=== PATIENT | female | born 1955 | race Caucasian/White ===

== ENCOUNTER 2018-10-11 05:48 | Inpatient (IN) | payer OTHER ==
[2018-10-11] VITALS (18 sets, daily range): BP systolic 96–151; BP diastolic 44–88
[~2018-10-11] VITALS: Ht 167.6 cm; Wt 99.8 kg
[2018-10-11] MEDS ORDERED: VITAMIN D250000 UNI1 ORAL (06:43)
[2018-10-11] MEDS ORDERED: HYDROCHLOROTHIA25 MG ORAL (06:43)
[2018-10-11] MEDS ORDERED: LISINOPRIL30 MG ORAL (06:43)
[2018-10-11] MEDS ORDERED: LEVOTHYROXINE125 MCG ORAL (06:43)
[2018-10-11] MEDS ORDERED: Lidocaine 1% MPF 10mg/ml 5ml ONE (06:46)
[2018-10-11] MEDS ORDERED: Midazolam 2mg/2ml Inj ONE (06:46)
[2018-10-11] MEDS ORDERED: fentaNYL 100 mcg/2 mL IV ONE (06:46)
[2018-10-11] MEDS ORDERED: ceFAZolin sod 2 GM in NS 55 ML IVPB ONE (07:00)
[2018-10-11] MEDS ORDERED: Succinylcholine 20mg/ml 10ml vial ONE (07:01)
[2018-10-11] MEDS ORDERED: Zemuron 50mg/5ml Inj IV ONE (07:01)
[2018-10-11] MEDS ORDERED: Vancomycin 1gm vial IVPB ONE (07:11)
[2018-10-11] MEDS ORDERED: Gelfoam Size TOPIC ONE (07:11)
[2018-10-11] MEDS ORDERED: Thrombin 5000 units TOPIC ONE (07:11)
[2018-10-11] MEDS ORDERED: Bacitracin 50000 Units Vial ONE (07:11)
--- NOTE | 2018-10-11 07:22 | Pre-Procedure Note/Attestation ---
Pre-Procedure Note/Attestation Complete Prior to Procedure Planned Procedure: not applicable Procedure Narrative: Anterior cervical discectomy and fusion C45 and artificial disc replacement C56 Indications for Procedure Pre-Operative Diagnosis: Herniation of C45,56 Attestation I attest that I discussed the nature of the procedure; its benefits; risks and complications; and alternatives (and the risks and benefits of such alternatives ), prior to the procedure, with the patient (or the patient's legal agency sales representative). I attest that, if there was a reasonable possibility of needing a blood transfusion, the patient (or the patient's legal agency sales representative) was given the [facility] standardized written summary, pursuant to the Greg Stuttgart Blood Safety Act ([place] Health and Safety Code # 1645, as amended). I attest that I re-evaluated the patient just prior to the surgery and that there has been no change in the patient's H&P, except as documented below: Neil Forde MD Oct 11, 2018 07:22
--- NOTE | 2018-10-11 07:24 | Brief Operative Note ---
Immediate Post Operative Note Operative Note Chief Complaint: neck pain and radiculpathy Pre-op Diagnosis: Herniation of C45,56 Procedure: Anterior cervical discectomy and fusion C45 and artificial disc replacement C56 Post-op Diagnosis: same as pre-op Findings: consistent w/pre-op dx studies Surgeon: Maurisio Supplier Development Manager: Mainor Anesthesiologist: EVER Anesthesia: general Specimen: none Complications: none Condition: stable Fluids: IVF Estimated Blood Loss: minimal Drains: none Implant(s) used?: Yes - nuvasive interlock sz 6, osteocell 1cc, prodisc c sz 5 Neil Forde MD Oct 11, 2018 07:24
[2018-10-11] MEDS ORDERED: Metoclopramide 10mg/2ml Inj IVP PRN ×2 (07:30→08:30)
[2018-10-11] MEDS ORDERED: Morphine Sulfate 10mg/ml Inj ONE (08:12)
[2018-10-11] MEDS ORDERED: Glycopyrrolate 0.2mg/ml 1ml Vial ONE (08:12)
[2018-10-11] MEDS ORDERED: Sodium Chloride 10ml vial INJ ONE (08:12)
[2018-10-11] MEDS ORDERED: Ketorolac 30mg Inj ONE (08:12)
[2018-10-11] MEDS ORDERED: Neostigmine 1mg/ml 10ml Inj ONE (08:12)
--- NOTE | 2018-10-11 08:26 | Anethesia Preoperative Eval ---
Anesthesia Pre-op PMH/ROS General Date of Evaluation: Oct 11, 2018 Time of Evaluation: 07:05 Anesthesiologist: Keyon ASA Score: ASA 2 Mallampati Score Class I : Soft palate, uvula, fauces, pillars visible Class II: Soft palate, uvula, fauces visible Class III: Soft palate, base of uvula visible Class IV: Only hard plate visible Mallampati Classification: Class II Surgeon: Maurisio Diagnosis: Cervical radiculopathy Surgical Procedure: ACDF C4 to C6 Anesthesia History: PONV Family History: no anesthesia problems Allergies: Coded Allergies: PENICILLINS (Verified Allergy, Intermediate, 10/11/18) rash PINEAPPLE (Verified Allergy, Intermediate, 10/11/18) sores in the mouth Medications: see eMAR Patient NPO?: Yes NPO Date: Oct 10, 2018 NPO Time: 1900 Past Medical History Cardiovascular: Reports: HTN - stable; Denies: CAD, [place], valve dz, arrhythmia, other Pulmonary: Denies: asthma, COPD, JOHNATHON, other Gastrointestinal/Genitourinary: Reports: GERD; Denies: CRI, ESRD, other Neurologic/Psychiatric: Reports: depression/anxiety; Denies: dementia, CVA, TIA, other Endocrine: Reports: hypothyroidism; Denies: DM, steroids, other HEENT: Denies: cataract (L), cataract (R), glaucoma, [place] (L), [place] (R), other Hematology/Immune: Denies: anemia, DVT, bleeding disorder, other Musculoskeletal/Integumentary: Denies: OA, RA, DJD, DDD, edema, other Other: other - overweight PMH Narrative: as above PSxH Narrative: Cholecystectomy, D&C, cosmetic Sx Anesthesia Pre-op Phys. Exam Physician Exam Last Vital Signs Date Time Temp Pulse Resp B/P (MAP) Pulse Ox O2 Delivery O2 Flow Rate FiO2 10/11/18 06:50 Room Air 10/11/18 06:24 97.0 69 18 151/75 (100) 99 Constitutional: NAD Neurologic: CN 2-12 intact Cardiovascular: RRR, no M/R/G Respiratory: CTA Gastrointestinal: S/NT/ND Airway Exam Mallampati Score: Class II MO: limited Neck: stiff ROM: limited Teeth: missing Dentures: no upper, no lower Anesthesia Pre-op A/P Labs see chart Studies Pre-op Studies: EKG - NSR, echo - EF 55% Risk Assessment & Plan Assessment: ASA 2 Plan: GAC with ETT PONV prevention, neuromonitoring Status Change Before Surgery: No Pre-Antibiotics Drug: Ancef 2gr. Given Within 1 Hr of Incision: Yes Time Given: 07:48 Jsoe M Ta MD Oct 11, 2018 08:26
[2018-10-11] MEDS ORDERED: LR 1000ml 1,000 ML IVLG SCH (08:27)
[2018-10-11] MEDS ORDERED: Ketorolac 30mg Inj IV PRN (08:30)
[2018-10-11] MEDS ORDERED: Acetaminophen (Non formulary) 100 ML IV ONE (08:30)
[2018-10-11] MEDS ORDERED: DiphenhydrAMINE 50mg/ml Inj IVP PRN (08:30)
[2018-10-11] MEDS ORDERED: Hydromorphone 0.5mg/0.5ml inj IVP PRN (08:30)
[2018-10-11] MEDS ORDERED: Propofol 1,000mg/ 100ml btl IV ONE (10:03)
[2018-10-11] MEDS ORDERED: LR 1000ml ONE (10:03)
[2018-10-11] MEDS ORDERED: Sterile Water Irrig 1000ml IRRIG ONE (10:03)
[2018-10-11] MEDS ORDERED: NS Irrig 1000ml ONE (10:03)
[2018-10-11] MEDS ORDERED: Neosporin Oint Ud Pkt TOPIC ONE (10:05)
--- NOTE | 2018-10-11 10:07 | Immediate Post-Op Evaluation ---
Immediate Post-Op Evalulation Immediate Post-Op Evalulation Procedure: ACDF C4-C5 C5-C6 Date of Evaluation: Oct 11, 2018 Time of Evaluation: 10:06 IV Fluids: 700 Blood Products: none Estimated Blood Loss: 50 Urinary Output: 600 Blood Pressure Systolic: 119 Blood Pressure Diastolic: 72 Pulse Rate: 68 Respiratory Rate: 20 O2 Sat by Pulse Oximetry: 99 Temperature (Fahrenheit): 97.6 Pain Score (1-10): 1 Nausea: No Vomiting: No Complications none Patient Status: reacts, patent, none Hydration Status: adequate Jose M Ta MD Oct 11, 2018 10:07
[2018-10-11] MEDS ORDERED: DiphenhydrAMINE 50mg/ml Inj ONE (10:21)
[2018-10-11] MEDS: NS w/KCl 20mEq 1000ml 1,000 ML IV SCH ×2 (11:57→23:07)
[2018-10-11] MEDS: Dexamethasone 4mg/ml vial IVP SCH ×2 (11:58→17:36)
[2018-10-11] MEDS ORDERED: Morphine Sulfate 4mg/ml Inj (IV USE ONLY) IV PRN ×2 (12:00)
[2018-10-11] MEDS ORDERED: HYDROcodone/Acetamin 7.5/325 tab ORAL PRN ×2 (12:00)
[2018-10-11] MEDS ORDERED: Milk of Magnesia 30ml Ud ORAL PRN (12:00)
[2018-10-11] MEDS ORDERED: Morphine Sulfate 2mg/ml Inj(IV/IM USE ONLY) IV PRN (12:00)
[2018-10-11] MEDS ORDERED: HYDROmorphone 1mg/ml Carpuject IVP PRN (12:00)
[2018-10-11] MEDS ORDERED: Naloxone 0.4mg/ml Inj IVP PRN (12:00)
[2018-10-11] MEDS ORDERED: Chloraseptic Spray 20mL Bottle ORAL PRN (13:00)
--- NOTE | 2018-10-11 14:37 | Diagnostic Imaging Report ---
Indication: Neck Pain Findings: 5 fluoroscopic views of the cervical spine were obtained. C5-6 anterior fusion and discectomy noted. There is also fusion of the C4-5 level. IMPRESSION: Intraoperative imaging
[2018-10-11] MEDS: ceFAZolin sod 1 GM in D5W 55 ML IV SCH ×2 (15:18→23:07)
[2018-10-11] MEDS: Docusate 100mg cap ORAL SCH (17:36)
[2018-10-11] MEDS: HYDROcodone/Acetamin 5/325 tab ORAL PRN (17:42)
[2018-10-12] VITALS: BP 115/59
[2018-10-12] MEDS: Dexamethasone 4mg/ml vial IVP SCH ×2 (00:18→06:04)
[2018-10-12] MEDS: HYDROcodone/Acetamin 5/325 tab ORAL PRN ×2 (00:18→12:10)
--- NOTE | 2018-10-12 01:45 | Operative Note - Dictated ---
DATE OF OPERATION: 10/11/2018 SURGEON: Neil Forde MD, Orthopedic Spine Surgeon. LEAD RADIATION THERAPIST: Rachid Hayward M.D. PREOPERATIVE DIAGNOSES: 1. Intractable neck pain. 2. Radiculopathy. 3. Herniation, C4-C5 and C5-C6. 4. Neural foraminal stenosis C4-C5 and C5-C6. 5. Stenosis. POSTOPERATIVE DIAGNOSES: 1. Intractable neck pain. 2. Radiculopathy. 3. Herniation, C4-C5 and C5-C6. 4. Neural foraminal stenosis C4-C5 and C5-C6. 5. Stenosis. PROCEDURE PERFORMED: 1. Anterior cervical discectomy and artificial disc replacement of C5-C6 using a Synthes Prodisc C 5 height. 2. Anterior cervical discectomy and fusion of C4-C5 using Nuvasive Interlock C size 6 PEEK cage and three 13 mm screws 1 mL Osteocell allograft bone and local autograft. 3. Use of intraoperative microscope. 4. Motor evoked potential monitoring. 5. Somatosensory evoked potential monitoring. 6. Supervision and interpretation of fluoroscopy. COMPLICATIONS: None. ANESTHESIA: General. ESTIMATED BLOOD LOSS: Less than 100 mL. INDICATIONS FOR SURGERY: This patient is a 63-year-old female who has a history of diagnoses as listed above. As of result of this, the patient sustained intractable neck pain, radiculopathy, herniation, C4-C5 and C5-C6, neural foraminal stenosis, C5-C6, stenosis. We tried a course of conservative management but despite this course there was still a significant component of persistent, recalcitrant neck pain and arm pain. The MRI demonstrated significant neural foraminal compromise secondary to disc herniations at C4-C5 and C5-C6. We had a long discussion with Prudence regarding the risks and benefits of surgery. Our discussion included but was not limited to nonoperative management, chiropractic management, another epidural steroid injection as well definitive management in the form of surgery. We recommended an artificial disc replacement of C5-C6 and anterior cervical discectomy and fusion of C4-C5 as final definitive management. We reviewed the risks and benefits of surgery with the patient. Our discussion included a comprehensive review of the clinical issues and the nature of the clinical decision. We reviewed the alternatives, including doing nothing. The patient elected to proceed accordingly with an artificial disc replacement of C5-C6 and anterior cervical discectomy and fusion of C4-C5. We had a long discussion regarding the risks, alternatives and benefits of surgery. Our description of the risks included a discussion in person as well as a signed consent which detailed all pertinent risks from the procedure itself. Briefly, our discussion included but was not limited to infection, bleeding, pseudarthrosis, spinal cord injury, neurovascular injury, dural tear, CSF leak, neuropathy, paralysis, permanent weakness/drop foot/drop arm, paresthesias, blindness, palsy and weakness. The patient understood there may be a need for a revision surgery or additional procedures. Approach-related complications including dysphonia, dysphagia, blindness, permanent vocal cord and neural injury, hematoma, swallowing and breathing difficulty. Medical complications were reviewed including liver, kidney, shock, cardiopulmonary failure, anesthesia complications including , swelling, damage to the musculature, larynx/voice injury or loss, esophagus/throat, trachea, blood vessels and muscles/muscular sprain and lungs/pneumothorax during this surgical procedure; injury to deeper structures may be temporary or permanent. After this review of risks, the patient understood these and elected to proceed. A written and verbal consent was given. We discussed the pros and cons of all the alternatives. We discussed the uncertainties associated with the decision. Afterwards I assessed the patient's understanding and explored their preferences. All questions were answered and no guarantees were given. Medical clearance was obtained prior to surgery. INTRAOPERATIVE FINDINGS: A discrete disc herniation which was found posterior to an obvious tear in the posterior longitudinal ligament at C5-C6. This was causing a considerable amount of neural foraminal stenosis with significant encroachment on the neural foramina and spinal cord which was being impinged as a result of this pressure. Upon inspection of the interspace at C4-C5. I noticed a rent in the posterior longitudinal ligament or PLL. Upon inspection of this tear once it was mobilized with Kerrison rongeurs there was a disc fragment and herniation causing encroachment on the neural foramina and spinal cord posterior to the PLL. This was resected as well which caused some noted relief on the underlying neural elements. DESCRIPTION OF PROCEDURE: Under the benefit of general endotracheal anesthesia and with the assistance of the entire operative team, the patient was moved from the [facility] onto the operative table in the supine position. The head was secured and carefully positioned appropriately. Bilateral arms were secured with GelPads and foam and all bony prominences were padded. For the bilateral lower extremities SCD and ISIDRO hose were placed for DVT prophylaxis. A surgical timeout was called which corroborated our planned procedure of artificial disc replacement of an artificial disc replacement of C5-C6 and anterior cervical discectomy and fusion of C4-C5. Preoperative antibiotics were administered within 30 minutes of the incision for antibiotic prophylaxis. Using lateral fluoroscopic radiography, the operative levels were delineated. Next the wound was prepped and draped with Chlorhexidine and sterile drapes. An incision was based on lateral fluoroscopy and we centered our incision at the C4-C5 and C5-C6 interspace and next using a standard Shine-Malcolm anterior based approach the incision was taken down through the skin and subcutaneous tissues until the vertebral bodies and their corresponding disc spaces were visualized. A needle was placed into the interspace to confirm placement of the operative interspace and we performed the remainder of procedure under microscopic visualization. Next, using a bipolar and Bovie cautery to ensure meticulous hemostasis, the longus colli was mobilized bilaterally and retractors were placed deep to the longus colli bilaterally to address retraction. Next we turned our attention to the radical anterior discectomy. This was initially performed at C5-C6. First by using a 15 blade scalpel followed by narrow pituitaries and a Microsect 5-B curette was used to denude the endplate of all cartilaginous tissue. Next using a [employer] [place] AM8 drillbit the vertebral endplates were denuded of all residual cartilage in a [id number] and layer by layer fashion, and ultimately the posterior uncinate joints bilaterally and posterior osteophytic lips and margins were carefully denuded until clear visualization of the posterior longitudinal ligament was possible. An endplate preparation was performed in the exact same fashion using an intervertebral community living instructor, sequential distraction was obtained throughout the disc space. We saw a tear/rent in the PLL and this was carefully mobilized and dissected using a Microsect 1-B curet until we visualized a discrete disc herniation with compression of the spinal cord as well as neural foramina . This neural foraminal compression was carefully resected using a Kerrison-1 and Kerrison-2 rongeurs until complete decompression of the spinal cord was visualized and complete decompression of the neural foramina and nerve root therein as well as the axilla and lateral margin of the nerve root was visualized and subsequently completely decompressed. The family was notified at one hour intervals throughout the procedure to provide for consistent updates. We next turned our attention towards trialing our implant within the disc space. We initially tried size 5 and this Prodisc Cervical spacer fit well in regards to depth and width. This implant was opened and prepared. Next under direct visualization I confirmed excellent fit in respect to the anterior and posterior vertebral bodies, the uncinate joints and in regards to toggle. Once satisfied with this placement on serial AP and lateral fluoroscopy I turned my attention towards cutting our luis. These were cut in the bones using a reciprocating drill and afterwards all free fragments of bone were irrigated. Next FloSeal was placed into the interspace, then removed in its entirety and the implant was inserted using fluoroscopic guidance. Next the Synthes Prodisc C size 5 ADR was then carefully advanced and secured into the intervertebral space under direct visualization and with supervision of AP and lateral fluoroscopic views. I next turned my attention towards the radical anterior discectomy. This was then performed at C4-C5 First by using a 15 blade scalpel followed by narrow pituitaries and a micro-sect 5-B curette was used to denude the endplate of all cartilaginous tissue. Next using a [employer] AM8 drillbit the vertebral endplates were denuded of all cartilaginous tissue in a [id number] and layer by layer fashion, and ultimately the posterior uncinate joints bilaterally and posterior osteophytic lips and margins were carefully denuded until wide and thorough visualization of the posterior longitudinal ligament was possible. At this level the endplate preparation was performed in the exact same fashion using an intervertebral community living instructor, sequential distraction was obtained throughout the disc space. We saw a tear/rent in the PLL and this was carefully mobilized and dissected using a micro-set 1-B curette until we visualized an obvious disc herniation with compression of the spinal cord as well as neural foramina . This neural foraminal compression was carefully resected using a Kerrison-1 and Kerrison-2 rongeurs until complete decompression of the spinal cord was visualized and complete decompression of the neural foramina and nerve root therein as well as the axilla and lateral margin of the nerve root was visualized and subsequently completely decompressed. We next turned our attention towards trialing our implant within the disc space. We initially tried size 5 and afterwards size 6 trial from the Nuvasive interlock system at each level, which appeared to be appropriate under AP and lateral fluoroscopy as well as in terms of its height, depth, width and lack of toggle. The PEEK polyetheretherketone interbody cages were then both packed with allograft bone from Osteocel and local autograft bone matrix. Next these were then carefully advanced and secured into their intervertebral spaces under direct visualization and with supervision of AP and lateral fluoroscopic views. We next turned our attention towards plating. Plating was performed at each level with the [employer] interlock-C plating system. A total of three screws, size 13 mm in length were inserted and confirmed under AP and lateral fluoroscopy and confirmed to be in excellent position. After a finger sweep we confirmed removal of all sponges. The retractor was removed and we next turned our attention to meticulous hemostasis with FloSeal and bipolar cautery. After the sponge and needle count was again found to be correct with our second count, we next turned our attention to closure. The wound was again copiously irrigated with antibiotic impregnated saline Closure consisted of 4-0 clear nylon for the platysma, and 5-0 clear nylon for the superficial skin. Final skin closure and dressings consisted of Dermabond. Prior to final closure, a final radiograph was obtained which demonstrated the hardware is intact with excellent position throughout. The patient tolerated the procedure well. The patient was carefully extubated after the conclusion of surgery. We discussed the findings of the surgery with the family upon completion of the case. At this point the patient was transferred to the spine floor for further observation. Neil Forde M.D. DR: RADHA JOB#: [id number] CC:
--- NOTE | 2018-10-12 02:45 | History and Physical Report ---
DATE OF ADMISSION: 10/11/2018 NOTE: INCOMPLETE DICTATION ATTENDING PHYSICIAN: Neil Forde M.D. REASON FOR ADMISSION: Elective C-spine surgery. HISTORY OF PRESENT ILLNESS: The patient is a 63-year-old white female, with history of multiple medical problems, who apparently suffered a neck injury while shopping at Rodrigo Bean M.D. DR: LOLITA JOB#: [id number] CC:
--- NOTE | 2018-10-12 03:45 | Pre-op HX & Phy Repo 2 SIG ---
DATE OF ADMISSION: 10/11/2018 ATTENDING PHYSICIAN: Neil Mabry M.D. REASON FOR ADMISSION: Elective C-spine surgery. HISTORY OF PRESENT ILLNESS: The patient is a 63-year-old female with multiple medical problems, who suffered a C-spine injury while shopping in a store, which resulted in C-spine disk disease with radiculopathy. The patient has been evaluated and is being admitted for anterior cervical diskectomy fusion. The patient denies history of coronary artery disease, chest pain, or shortness of breath and has been active in the past, felt prior to her injury. PAST MEDICAL HISTORY: 1. Hypertension. 2. History of Ingrid thyroiditis. 3. Status post D and C. 4. Status post cholecystectomy. MEDICATIONS: Include lisinopril 20 mg daily, levothyroxine 150 mcg daily, hydrochlorothiazide 25 mg daily, vitamin D and fish oil daily. Currently, fish oil is on hold. ALLERGIES: To penicillin. SOCIAL HISTORY: The patient is single. She works as a hairdresser. She does not smoke and does not drink and she has one child. FAMILY HISTORY: Significant for history of abdominal aortic aneurysm in her mother. REVIEW OF SYSTEMS: GENERAL: The patient denies weight loss, fever, chills, or night sweats. HEENT: Denies headache or sinus problem. Denies cough or sputum production. CARDIOVASCULAR: Denies chest pain, palpitations, PND, orthopnea, or lower extremity edema. GASTROINTESTINAL: Denies dysphagia, dyspepsia, or abdominal pain. No nausea, vomiting, diarrhea, or hematochezia. GENITOURINARY: Denies dysuria or hematuria. MUSCULOSKELETAL: Denies arthritis or bony pain. NEUROLOGIC: Complains of paresthesias of the upper extremity. HEMATOLOGIC: The patient denies bleeding tendency. PHYSICAL EXAMINATION: VITAL SIGNS: Blood pressure is 115/70, temperature afebrile, heart rate is 64. HEENT: Unremarkable. NECK: Tender. LUNGS: Without rales or wheezes. CARDIAC: S1 and S2 are normal without S3, S4. Jugular venous pressure is normal. ABDOMEN: Soft and nontender. Bowel sounds are present. EXTREMITIES: Without cyanosis, clubbing, or edema. LABORATORY AND DIAGNOSTIC DATA: Laboratory data were reviewed and . EKG shows sinus bradycardia with marked left axis deviation and moderate intraventricular conduction delay. An echocardiogram was performed, which showed normal LV systolic function and ejection fraction with mild aortic insufficiency, mild mitral insufficiency, and mild tricuspid regurgitation. IMPRESSION: 1. Status post fall. 2. C-spine injury due to above. 3. Abnormal EKG with normal LV systolic function. 4. Hypercholesterolemia. 5. . 6. Hypothyroidism. 7. Hypertension, currently controlled. 8. Mild mitral, tricuspid, and aortic regurgitation without hemodynamic significance at this point. PLAN OF SUGGESTION: The patient still wants to proceed with surgery as planned and will be restarted on her usual medications as per Surgery. We will monitor the patient for any respiratory compromise and we will monitor blood pressure and adjust medications as necessary. Dr. Mabry, thank you for allowing me to participate in the care of this patient. I will be happy to follow with you as necessary. Bhanu Sandhu JOB#: [id number] CC: Rodrigo Bean M.D.; Fax#: [phone] Osmar MABRY M.D.; FAX#: [phone]
[2018-10-12 04:00] VITALS: BP 108/55
[2018-10-12 08:00] VITALS: BP 108/59
[2018-10-12] MEDS: NS w/KCl 20mEq 1000ml 1,000 ML IV SCH (08:30)
--- NOTE | 2018-10-12 08:35 | 48 Hour Post Anesthesia Eval ---
Post Anesthesia Evaluation Procedure: ACDF C4-C5 C5-C6 Date of Evaluation: Oct 12, 2018 Airway: patent Nausea: No Vomiting: No Pain Intensity: 0 Hydration Status: adequate Cardiopulmonary Status: at baseline Mental Status/LOC: patient returned to baseline Post-Anesthesia Complications: 0 Follow-up care needed: N/A - further care as per primary team Kim De La Cruz MD Oct 12, 2018 08:35
[2018-10-12] MEDS: Docusate 100mg cap ORAL SCH (08:37)
[2018-10-12] MEDS: ceFAZolin sod 1 GM in D5W 55 ML IV SCH (08:37)
[2018-10-12] MEDS ORDERED: Lisinopril 20mg tab ORAL SCH (09:00)
[2018-10-12] MEDS ORDERED: NORCO 10-325 T1 EACH ORAL (09:22)
[2018-10-12 12:00] VITALS: BP 129/56
[2018-10-12] MEDS ORDERED: Tubing IV Secondary IV ONE (13:06)
--- NOTE | 2018-10-12 15:54 | Cardiology Progress Note ---
Assessment/Plan Status Narrative s/p C spine discectomy and fusion Hypothydism HTN Assessment/Plan Doing well Pain meds DC as per Dr. Forde. F/U office PRN. Subjective Cardiovascular: Reports: no symptoms; Denies: chest pain, edema, irregular heart rate Respiratory: Reports: no symptoms Gastrointestinal/Abdominal: Reports: no symptoms Genitourinary: Reports: no symptoms Subjective s/p C spine surgery. C/O pain Objective Last 24 Hour Vital Signs Date Time Temp Pulse Resp B/P (MAP) Pulse Ox O2 Delivery O2 Flow Rate FiO2 10/12/18 12:40 98.1 10/12/18 12:00 97.6 49 17 129/56 (80) 97 10/12/18 09:25 Room Air 10/12/18 08:37 108/59 10/12/18 08:00 98.1 88 17 108/59 (75) 96 10/12/18 04:00 98.1 50 19 108/55 (72) 98 10/12/18 01:24 98 Nasal Cannula 3.0 32 10/12/18 00:00 98.1 57 19 115/59 (77) 98 10/11/18 21:00 Nasal Cannula 3.0 10/11/18 20:00 100.4 63 19 116/54 (74) 98 10/11/18 16:00 98.1 72 21 102/53 (69) 95 Neck: limited range of motion Cardiovascular: normal peripheral pulses, normal rate, regular rhythm, regularly irregular, no gallop/murmur Respiratory/Chest: lungs clear, normal breath sounds Abdomen: normal bowel sounds, non tender, soft Extremities: non-tender Intake and Output 10/11/18 10/12/18 18:59 06:59 Intake Total 1875 ml 300 ml Output Total 650 ml Balance 1225 ml 300 ml Intake Oral 420 ml 200 ml IV Total 1455 ml 100 ml Output Urine Total 600 ml Estimated Blood Loss 50 ml # Voids 1 Rodrigo Bean MD Oct 12, 2018 15:54
--- NOTE | 2018-10-13 07:05 | Discharge Summary ---
Discharge Summary Discharge Summary _ DATE OF ADMISSION: 10/11/2018 DATE OF DISCHARGE: 10/12/2018 DISCHARGED BY: Dr. Neil Forde FIG WASHER: Dr. Rodrigo Bean BRIEF HOSPITAL COURSE: Patient is a 63-year-old female, with history of hypertension and Ingrid thyroiditis, who suffered a C-spine injury while shopping in a store, which resulted in a C-spine disc disease with radiculopathy. She tried a course of conservative management, but despite this course, there was still significant component of persistent, recalcitrant neck and arm pain. MRI demonstrated significant neural foraminal compromise secondary to disc herniations at C4-C5 and C5-C6. She was admitted on 10/11/2018 and underwent ACDF C4-C5 and artificial disc replacement C5-C6. She tolerated procedure well. Surgery was uneventful. Post-operatively, patient was admitted for post-op care. She was placed on SCDs for DVT prophylaxis and was encouraged use of incentive spirometer. Home meds were resumed. Patient was given pain management. She was seen by PT. Diet was advanced. Incision was clean, dry and intact. Patient was ambulating well with good pain control and was tolerating diet. Patient was eventually cleared for discharge home. She was given a raised toilet seat prior to discharge. PREOPERATIVE DIAGNOSES: 1. Intractable neck pain. 2. Radiculopathy. 3. Herniation, C4-C5 and C5-C6. 4. Neural foraminal stenosis C4-C5 and C5-C6. 5. Stenosis. POSTOPERATIVE DIAGNOSES: 1. Intractable neck pain. 2. Radiculopathy. 3. Herniation, C4-C5 and C5-C6. 4. Neural foraminal stenosis C4-C5 and C5-C6. 5. Stenosis. PROCEDURE PERFORMED: 1. Anterior cervical discectomy and artificial disc replacement of C5-C6 using a Synthes Prodisc C 5 height. 2. Anterior cervical discectomy and fusion of C4-C5 using Nuvasive Interlock C size 6 PEEK cage and three 13 mm screws 1 mL Osteocell allograft bone and local autograft. 3. Use of intraoperative microscope. 4. Motor evoked potential monitoring. 5. Somatosensory evoked potential monitoring. 6. Supervision and interpretation of fluoroscopy (Refer to Operative Report) DISCHARGE DISPOSITION: Patient was discharged home. DISCHARGE MEDICATIONS: Refer to Medication Reconciliation Sheet. DISCHARGE INSTRUCTIONS: Post-op instructions given. Follow-up in a week. I have been assigned to complete a DC summary on this account, I was not involved with the patient's management. Kailee Michael NP Oct 13, 2018 07:05
[2018-10-15] MEDS ORDERED: Vitamin D 50,000 units cap ORAL SCH (09:00)
== END 2018-10-12 13:07 | disposition home or self-care (01) | DRG 473 ==
LOC: SDSOVERFLO 05:48 → 3E 11:25
PROC: 0RG10A0 Fusion of Cervical Vertebral Joint with Interbody Fusion Device, Anterior Approach, Anterior Column, Open Approach (ICD-10-PCS; principal; 2018-10-11 07:00)
PROC: 0RR30JZ Replacement of Cervical Vertebral Disc with Synthetic Substitute, Open Approach (ICD-10-PCS; 2018-10-11 07:00)
PROC: 0RT30ZZ Resection of Cervical Vertebral Disc, Open Approach (ICD-10-PCS; 2018-10-11 07:00)
DX: M50.121 Cervical disc disorder at C4-C5 level with radiculopathy (principal); M48.02 Spinal stenosis, cervical region; I10 Essential (primary) hypertension; E06.3 Autoimmune thyroiditis; Z90.49 Acquired absence of other specified parts of digestive tract; Z88.0 Allergy status to penicillin; E78.00 Pure hypercholesterolemia, unspecified; I34.0 Nonrheumatic mitral (valve) insufficiency; I36.1 Nonrheumatic tricuspid (valve) insufficiency; I35.1 Nonrheumatic aortic (valve) insufficiency
CPT/HCPCS: 36415; 72040; 76000; 86850; 86900; 86901; 87081; 94003; 94150; J2250; J2405; J2710; J2765